=== PATIENT | male | born 1960 | race African-American/Black ===

== ENCOUNTER 2021-10-02 00:19 | Inpatient (IN) | payer OTHER ==
[~2021-10-02] VITALS: Ht 182.9 cm; Wt 59.9 kg
[2021-10-02] VITALS (24 sets, daily range): BP systolic 126–149; BP diastolic 70–103
[2021-10-02] MEDS ORDERED: SODIUM CHLORIDE 0.9% 1,000 ML IV ONE (00:45)
[2021-10-02 01:24] LABS: HEMATOCRIT. 52.3 % (42.0-52.0); HEMOGLOBIN. 14.8 g/dL (14.0-18.0); MEAN CORPUSCULAR HEMOGLOBIN 30.7 pg (28.0-32.0); MEAN CORPUSCULAR VOLUME 108.5 fL (80.0-94.0); MEAN PLATELET VOLUME 9.6 fl (7.4-10.4); PLATELET 291 x1000/uL (130-400); RED BLOOD CELL COUNT 4.82 mill/uL (4.7-6.1); RED CELL DISTRIBUTION WIDTH 16.1 % (11.6-14.6)
[2021-10-02 01:28] LABS: CHLORIDE 97 mEq/L (98-107)
[2021-10-02] MEDS ORDERED: INSULIN REGULAR 100U/100ML PMX 100 ML IV NR (01:45)
[2021-10-02] MEDS ORDERED: CEFTRIAXONE 1 G PREMIX 50 ML IV ONE (01:45)
[2021-10-02] MEDS ORDERED: CEFTRIAXONE 1 G PREMIX 50 ML IV NR (02:00)
[2021-10-02 02:16] LABS: BG BASE EXCESS -20.9 mmol/L (-2.0-2.0); BG CARBOXYHEMOGLOBIN 0.3 % (0.5-1.5); BG DEOXYHEMOGLOBIN 1.8 % (0.0-5.0); BG FRACTION INSPIRED OXYGEN 21; BG HCO3 ACT 6.7 mmol/L (22.0-26.0); BG METHEMOGLOBIN 0.1 % (0.0-1.5); BG OXYGEN SATURATION 98.2 % (92.0-98.5); BG OXYHEMOGLOBIN 97.8 % (94.0-97.0); BG PCO2 21.2 mmHg (35.0-45.0); BG PH 7.116 (7.350-7.450); BG PO2 144.6 mmHg (75.0-100.0); BG SAMPLE SITE RIGHT BRACHIAL; BG TOTAL HEMOGLOBIN 14.7 g/dL (12.0-18.0); BG VENT MODE ROOM AIR
[2021-10-02] MEDS ORDERED: HALOPERIDOL LACTATE 5MG/ML VIAL IM ONE (02:45)
[2021-10-02] MEDS ORDERED: LORAZEPAM 2MG/ML CPJ IM ONE (02:45)
[2021-10-02] MEDS ORDERED: DEXT 10% WATER 1,000 ML IV SCH (03:30)
[2021-10-02 04:29] LABS: PHOSPHORUS 6.6 mg/dL (2.5-4.9)
[2021-10-02 04:56] LABS: BETA HYDROXYBUTYRATE 13.6 mMol/L (0.0-0.3)
[2021-10-02] MEDS ORDERED: DEXTROSE 50% WATER 50ML SYRINGE IV PRN ×3 (05:45→19:30)
[2021-10-02] MEDS ORDERED: INSULIN REGULAR 100U/100ML PMX 100 ML IV SCH (05:45)
[2021-10-02 05:51] LABS: PHOSPHORUS 4.1 mg/dL (2.5-4.9)
[2021-10-02] MEDS: BLOOD SUGAR DIAGNOSTIC STRIP TEST SCH ×14 (05:56→21:52)
[2021-10-02] MEDS ORDERED: SODIUM CHLORIDE 0.9% 1,000 ML IV SCH (06:00)
[2021-10-02 06:22] LABS: HEMATOCRIT. 48.6 % (42.0-52.0); HEMOGLOBIN. 15.5 g/dL (14.0-18.0); MEAN CORPUSCULAR VOLUME 97.4 fL (80.0-94.0); MEAN PLATELET VOLUME 9.4 fl (7.4-10.4); PLATELET 265 x1000/uL (130-400); RED BLOOD CELL COUNT 4.99 mill/uL (4.7-6.1); RED CELL DISTRIBUTION WIDTH 14.4 % (11.6-14.6)
[2021-10-02 07:21] LABS: PLATELET ESTIMATE NORMAL
[2021-10-02] MEDS ORDERED: SODIUM CHLORIDE 0.45% 1,000 ML IV SCH (10:00)
[2021-10-02 10:04] LABS: PLATELET ESTIMATE NORMAL
[2021-10-02 10:41] LABS: PHOSPHORUS 2.2 mg/dL (2.5-4.9)
[2021-10-02 11:53] LABS: CHLORIDE 119 mEq/L (98-107)
[2021-10-02] MEDS ORDERED: DEXT 5%/0.45% NACL 1000ML 1,000 ML IV SCH (15:45)
[2021-10-02 17:02] LABS: CHLORIDE 121 mEq/L (98-107)
[2021-10-02 18:44] LABS: CLARITY URINE CLOUDY (CLEAR); COLOR URINE YELLOW (YELLOW); KETONES URINE 2+ (NEGATIVE); LEUKOCYTE ESTERASE URINE 2+ (NEGATIVE); NITRITE URINE NEGATIVE (NEGATIVE); OCCULT BLOOD URINE 2+ (NEGATIVE); PROTEIN URINE 1+ (NEGATIVE); SPECIFIC GRAVITY URINE 1.026 (1.005-1.030); UROBILINOGEN URINE 0.2 E.U./dL (0.2-1.0)
[2021-10-02 19:02] LABS: *AMPHETAMINES SCREEN URINE NEGATIVE (NEGATIVE); *BARBITURATES SCREEN URINE NEGATIVE (NEGATIVE); *BENZODIAZEPINES SCREEN URINE NEGATIVE (NEGATIVE); *COCAINE SCREEN URINE PRESUMTIVE POSITIVE (NEGATIVE); CANNABINOID URINE SCREEN PRESUMTIVE POSITIVE (NEGATIVE); METHADONE URINE SCREEN NEGATIVE (NEGATIVE); OPIATES URINE SCREEN NEGATIVE (NEGATIVE); PHENCYCLIDINE URINE SCREEN NEGATIVE (NEGATIVE)
[2021-10-02] MEDS: DEXT 5%/0.45% NACL KCL 20MEQ/L 1,000 ML IV SCH (20:57)
[2021-10-02 21:20] LABS: CHLORIDE 121 mEq/L (98-107)
[2021-10-02] MEDS: INSULIN GLARGINE 100 UNITS/ML SUBCUT SCH (21:56)
[2021-10-02] MEDS: INSULIN LISPRO 100 UNITS/ML SUBCUT SCH (21:56)
[2021-10-03] VITALS (17 sets, daily range): BP systolic 114–148; BP diastolic 74–99
[2021-10-03 01:03] LABS: CHLORIDE 123 mEq/L (98-107)
[2021-10-03 06:06] LABS: BASOPHILS % 0.1 % (0.0-2.0); EOSINOPHILS % 0.2 % (0.0-5.0); HEMATOCRIT. 47.4 % (42.0-52.0); HEMOGLOBIN. 15.6 g/dL (14.0-18.0); LYMPHOCYTES % 7.4 % (20.0-50.0); MEAN CORPUSCULAR HEMOGLOBIN 31.2 pg (28.0-32.0); MEAN PLATELET VOLUME 9.4 fl (7.4-10.4); MONOCYTES % 9.7 % (2.0-8.0); NEUTROPHILS % 82.6 % (40.0-76.0); PLATELET 219 x1000/uL (130-400); RED BLOOD CELL COUNT 4.99 mill/uL (4.7-6.1); RED CELL DISTRIBUTION WIDTH 13.9 % (11.6-14.6)
[2021-10-03 06:27] LABS: CHLORIDE 120 mEq/L (98-107)
[2021-10-03 06:35] LABS: PHOSPHORUS 1.7 mg/dL (2.5-4.9)
[2021-10-03] MEDS: BLOOD SUGAR DIAGNOSTIC STRIP TEST SCH ×4 (07:25→21:00)
[2021-10-03] MEDS: DEXT 5%/0.45% NACL KCL 20MEQ/L 1,000 ML IV SCH (07:30)
[2021-10-03] MEDS: INSULIN LISPRO 100 UNITS/ML SUBCUT SCH ×6 (07:32→21:00)
[2021-10-03] MEDS ORDERED: DEXT 5%/0.45% NACL 1000ML 1,000 ML IV SCH (07:45)
[2021-10-03] MEDS ORDERED: CEFTRIAXONE 1 G PREMIX 50 ML IV SCH (07:45)
[2021-10-03 07:55] LABS: CREATINE KINASE 762 IU/L (39-308)
[2021-10-03] MEDS ORDERED: POTASSIUM PHOS,M-BASIC-D-BASIC 15 MMOL in DEXT 5% WATER 245 ML IV SCH (08:00)
[2021-10-03] MEDS: PANTOPRAZOLE SODIUM 40 MG/VIAL IV SCH (08:23)
[2021-10-03] MEDS: CEFTRIAXONE 1,000 MG in DEXTROSE 5% WATER 50 ML IV SCH (08:24)
[2021-10-03] MEDS: INSULIN GLARGINE 100 UNITS/ML SUBCUT SCH ×2 (10:21→22:47)
[2021-10-03] MEDS: SODIUM CHLORIDE 0.45% 1,000 ML IV SCH (18:34)
[2021-10-04] VITALS: BP 125/86
[2021-10-04] MEDS: SODIUM CHLORIDE 0.45% 1,000 ML IV SCH ×2 (02:37→08:39)
[2021-10-04 04:00] VITALS: BP 126/76
[2021-10-04] MEDS: BLOOD SUGAR DIAGNOSTIC STRIP TEST SCH ×3 (06:47→17:33)
[2021-10-04] MEDS: INSULIN LISPRO 100 UNITS/ML SUBCUT SCH ×6 (06:51→17:55)
[2021-10-04 07:04] LABS: BASOPHILS % 0.2 % (0.0-2.0); EOSINOPHILS % 1.7 % (0.0-5.0); HEMATOCRIT. 41.4 % (42.0-52.0); HEMOGLOBIN. 13.5 g/dL (14.0-18.0); LYMPHOCYTES % 10.3 % (20.0-50.0); MEAN CORPUSCULAR HEMOGLOBIN 30.9 pg (28.0-32.0); MEAN CORPUSCULAR VOLUME 94.5 fL (80.0-94.0); MEAN PLATELET VOLUME 10.3 fl (7.4-10.4); MONOCYTES % 4.4 % (2.0-8.0); NEUTROPHILS % 83.4 % (40.0-76.0); PLATELET 177 x1000/uL (130-400); RED BLOOD CELL COUNT 4.38 mill/uL (4.7-6.1)
[2021-10-04 07:17] LABS: CHLORIDE 116 mEq/L (98-107)
[2021-10-04 07:24] LABS: PHOSPHORUS 2.2 mg/dL (2.5-4.9)
[2021-10-04 07:41] VITALS: BP 108/69
[2021-10-04] MEDS: PANTOPRAZOLE SODIUM 40 MG/VIAL IV SCH (08:36)
[2021-10-04] MEDS: CEFTRIAXONE 1,000 MG in DEXTROSE 5% WATER 50 ML IV SCH (08:36)
[2021-10-04] MEDS: POTASSIUM-SODIUM PHOSPHATE POWDER PACKET PO SCH ×2 (08:42→16:03)
[2021-10-04] MEDS: INSULIN GLARGINE 100 UNITS/ML SUBCUT SCH (09:29)
[2021-10-04 11:36] VITALS: BP 119/74
[2021-10-04 15:50] VITALS: BP 118/70
[2021-10-04 18:00] VITALS: BP 118/70
== END 2021-10-04 18:55 | disposition home or self-care (01) | DRG 420 ==
LOC: ER 00:19 → ENRESERV 07:26 → MICUSO 08:39 → 6WST 10-03 15:52
PROVIDERS: ADMIT Internal Medicine; ATTEND Internal Medicine
DX: E11.10 Type 2 diabetes mellitus with ketoacidosis without coma (principal); N17.0 Acute kidney failure with tubular necrosis; E87.0 Hyperosmolality and hypernatremia; E87.5 Hyperkalemia; I10 Essential (primary) hypertension; G40.909 Epilepsy, unspecified, not intractable, without status epilepticus; N39.0 Urinary tract infection, site not specified; E87.8 Other disorders of electrolyte and fluid balance, not elsewhere classified; J44.9 Chronic obstructive pulmonary disease, unspecified; E83.39 Other disorders of phosphorus metabolism; E86.9 Volume depletion, unspecified; Z60.2 Problems related to living alone; F14.10 Cocaine abuse, uncomplicated; F12.10 Cannabis abuse, uncomplicated
CPT/HCPCS: 36415; 36600; 71045; 76770; 80048; 80053; 80305; 81003; 82010; 82375; 82550; 82805; 82962; 83036; 83735; 84100; 84145; 84484; 85025; 92610; 93005; 97116; 97162; 99291; C9113; J0696; J1630; J1815; J2060; J3490; J7030; J7060